=== PATIENT | female | born 1945 | race Caucasian/White ===

== ENCOUNTER 2018-07-29 02:45 | Emergency (ER) | payer MEDICARE ==
[~2018-07-29] VITALS: Ht 149.9 cm; Wt 40.8 kg
[2018-07-29] MEDS ORDERED: ONDANSETRON HCL 4 MG ORAL DISINTEGRATING TAB ONE (03:07)
[2018-07-29] MEDS ORDERED: TRAMADOL HCL 50 MG TAB PO ONE (03:15)
== END 2018-07-29 03:20 | disposition home or self-care (01) ==
LOC: ER 02:45
DX: R10.12 Left upper quadrant pain (principal); B02.9 Zoster without complications
CPT/HCPCS: 99283

== ENCOUNTER 2018-08-01 22:15 | Emergency (ER) | payer SELFPAY ==
[~2018-08-01] VITALS: Ht 149.9 cm; Wt 40.8 kg
[2018-08-01] MEDS ORDERED: HYDROCODONE/APAP 10MG-325MG TAB PO ONE (23:15)
[2018-08-01] MEDS ORDERED: ONDANSETRON HCL 4 MG ORAL DISINTEGRATING TAB PO ONE (23:15)
[2018-08-02 02:36] VITALS: BP 160/70
== END 2018-08-02 02:42 | disposition home or self-care (01) ==
LOC: ER 22:15
DX: B02.9 Zoster without complications (principal); R11.0 Nausea
CPT/HCPCS: 99282